=== PATIENT | female | born 1950 | race Caucasian/White ===

== ENCOUNTER → 2017-06-24 | Outpatient (CLI) | payer OTHER ==
[~2017-06-24] MED LIST: COL250 PO; CRESTOR40 M1 PO; FLEXERIL10 MG PO; LAC PO; LEVOTHYROXIN0.112 M1 PO; MAC100 PO; NORCO1 TA2 PO; ROBAXIN-750750 MG PO
== END | disposition home or self-care (01) ==
LOC: MA 06-23 09:00 → CT 08:40 → MA 09:00 → CT 09:30
PROC: BW281ZZ Computerized Tomography (CT Scan) of Head using Low Osmolar Contrast (ICD-10-PCS; principal; 2017-06-24)
PROC: B345ZZZ Ultrasonography of Bilateral Common Carotid Arteries (ICD-10-PCS; 2017-06-24)
PROC: B348ZZZ Ultrasonography of Bilateral Internal Carotid Arteries (ICD-10-PCS; 2017-06-24)
DX: R51 Headache (principal); G43.819 Other migraine, intractable, without status migrainosus
CPT/HCPCS: Q9967

== ENCOUNTER → 2017-06-28 | Outpatient (CLI) | payer MEDICARE, OTHER | END | disposition home or self-care (01) | LOC: MA 09:00 → CA 10:30 | PROC: BH02ZZZ Plain Radiography of Bilateral Breasts (ICD-10-PCS; principal; 2017-06-28) | DX: I25.10 Atherosclerotic heart disease of native coronary artery without angina pectoris (principal); Z12.31 Encounter for screening mammogram for malignant neoplasm of breast | CPT/HCPCS: G0202 ==

== ENCOUNTER 2020-02-22 13:05 | Emergency (ER) | payer OTHER ==
[~2020-02-22] VITALS: Ht 152.4 cm; Wt 97.5 kg
[2020-02-22 13:27] VITALS: Ht 152.4 cm; Wt 97.5 kg
[2020-02-22 16:36] LABS: microscopic required? NO
[2020-02-22 16:46] LABS: UA SPECIFIC GRAVITY >=1.030 (1.005-1.035); urine erythrocyte NEGATIVE (NEGATIVE)
[2020-02-22 20:27] VITALS: BP 144/70
== END 2020-02-22 20:25 | disposition home or self-care (01) ==
LOC: ED 13:05
PROVIDERS: Emergency Medicine
DX: R10.2 Pelvic and perineal pain (principal); R10.32 Left lower quadrant pain; E78.00 Pure hypercholesterolemia, unspecified; E03.9 Hypothyroidism, unspecified; Z88.5 Allergy status to narcotic agent
CPT/HCPCS: J1885